=== PATIENT | female | born 1940 | race Caucasian/White ===

== ENCOUNTER 2024-10-15 14:05 | Emergency (ER) | payer MEDICARE, MEDICAID, SELFPAY ==
[2024-10-15] VITALS (21 sets, daily range): BP systolic 129–170; BP diastolic 57–99; PULSE 82–103; RESP 16–30; TEMP 36.9; O2SAT 96–98
--- NOTE | ~2024-10-15 | XR_ITS ---
EXAMINATION: XR chest 2V DATE: 10/15/2024 14:59 INDICATION: Chest pain. Abnormal labs. TECHNIQUE: frontal and lateral views of the chest were obtained. COMPARISON: None FINDINGS: Linear opacities at the left costophrenic angle and favor lingular atelectasis over pneumonia. Indete rminate 1.5 cm nodular opacity lateral right midlung zone. No pulmonary edema, pleural effusion or pn eumothorax. The cardiomediastinal silhouette is normal. Thoracolumbar levoscoliosis and thoracolumbar compression fracture. 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 IMPRESSION: 1. Indeterminate 1.5 cm nodule at the lateral right midlung zone which could be malignant versus atel ectasis or pneumonia. Recommend chest CT for further evaluation. Reviewed, dictated and finalized at location A. IMPRESSION: 1. Indeterminate 1.5 cm nodule at the lateral right midlung zone which could be malignant versus atelectasis or pneumonia. Recommend chest CT for further eval uation.
--- NOTE | ~2024-10-15 | CT_ITS ---
EXAMINATION: CT diagnostic chest wo con DATE: 10/15/2024 15:26 INDICATION: lung nodule TECHNIQUE: Computed tomography (CT) of the chest was performed without intravenous contrast. Addition al 3D reconstructions utilizing coronal maximum intensity projection (MIP) were performed. Automated exposure control and iterative reconstruction technique were employed. The dose-length product was 13 6.05 mGy-cm. COMPARISON: Chest radiograph dated 10/15/2024 FINDINGS: The 1.5 cm right lower lobe nodule identified on prior chest radiograph demonstrates subtle calcifica tion consistent with old granulomatous disease. There is mild atelectasis inferiorly at the lingula a nd in the dependent lower lobes. 12 x 6 mm nodular opacity lateral left apex potentially related to p leural parenchymal scarring. No pneumonia, pulmonary edema, pleural effusion or pneumothorax. Mild ca rdiomegaly. Atherosclerotic coronary artery calcification. No pericardial effusion. Aortic valve calc ification. Thoracic aorta is normal in caliber. No pathologically enlarged thoracic lymphadenopathy. Likely age-related mild bilateral renal cortical atrophy. Visualized upper abdomen is otherwise unrem arkable. Severe lower cervical and lower thoracic spondylosis. Chronic appearing mild anterior wedgin g at T7 and T8. IMPRESSION: 1. The 1.5 cm nodule of concern the right lower lobe demonstrate subtle calcination consistent with o ld granulomatous disease. There is a second determined 12 x 6 mm peripheral left apical nodule which could be related to pleural parenchymal scarring. If prior outside imaging is unavailable to document chronic stability would recommend 3 month follow-up low-dose noncontrast chest CT or PET/CT for furt her evaluation. 2. Mild cardiomegaly. Reviewed, dictated and finalized at location A. IMPRESSION: 1. The 1.5 cm nodule of concern the right lower lobe demonstrate subtle calcina tion consistent with old granulomatous disease. There is a second determined 12 x 6 mm peripheral left apical nodule which could be related to pleural parench ymal scarring. If prior outside imaging is unavailable to document chronic stab ility would recommend 3 month follow-up low-dose noncontrast chest CT or PET/CT for further evaluation. 2. Mild cardiomegaly.
--- NOTE | 2024-10-15 14:17 | ECG_ITS ---
Test Date: 2024-10-15 14:28:05 Measurements Intervals Damon Rate: 100 P: 39 DC: 153 QRS: -35 QRSD: 141 T: 143 QT: 384 QTc: 497 Interpretive Statements SINUS TACHYCARDIA LEFT BUNDLE BRANCH BLOCK BASELINE ARTIFACT- I, II, III, AVR, AVL, AVF ABNORMAL ECG No previous ECG available for comparison Electronically Signed On 10-15-2024 15:29:37 CDT by Cyrus Yu D.O.
[2024-10-15 14:28] LABS: Basophils Absolute Auto 0.1 K/mm3 (0.0-0.1); Basophils Percent Auto 1.2 % (0.2-1.2); Eosinophils Absolute Auto 0.3 K/mm3 (0-0.3); Hematocrit 42.3 % (37.0-47.0); Hemoglobin 13.7 g/dL (12.0-15.0); Immature Granulocyte Absolute 0.03 K/mm3 (0.00-0.031); Immature Granulocyte Percent A 0.4 % (0-0.5); Lymphocytes Absolute Auto 2.38 K/mm3 (0.9-3.2); Lymphocytes Percent Auto 30.4 % (18.3-44.2); Mean Corpuscular HGB Conc 32.4 g/dl (32-36); Mean Corpuscular Hemoglobin 28.4 pg (26-34); Mean Corpuscular Volume 87.8 fl (80-100); Mean Platelet Volume 9.9 fl (7.4-10.4); Monocytes Absolute Auto 0.7 K/mm3 (0.1-0.6); Monocytes Percent Auto 8.3 % (2.6-8.5); Neutrophils Absolute Auto 4.4 K/mm3 (1.3-6.7); Neutrophils Percent Auto 55.7 % (45.5-73.1); Platelet Count Result 254 k/mm3 (150-375); Red Blood Count 4.82 M/mm3 (4.2-5.4); Red Cell Distribution Width 13.5 % (11.5-14.5); White Blood Count 7.8 K/mm3 (4.5-10.0)
[2024-10-15 14:39] LABS: Prothrombin Time 13.4 Seconds (11.1-14.7)
[2024-10-15 14:40] LABS: Alanine Aminotransferase 32 U/L (6-35); Albumin Level 3.8 g/dL (3.5-5.1); Alkaline Phosphatase 84 U/L (38-126); Anion Gap 7 mmol/L (4-12); Aspartate Amino Transferase 45 U/L (14-36); Bilirubin,Total 0.4 mg/dL (0.2-1.3); Blood Urea Nitrogen 18 mg/dL (7-17); Carbon Dioxide 23 mmol/L (22-30); Chloride 110 mmol/L (98-107); Estimated CRCL calculation 39 ml/min; Estimated Glomerular Filt Rate 55; Glucose 176 mg/dL (65-110); Lipase 122 U/L (23-300); Partial Thromboplastin Time 22.2 Seconds (22.3-36.8); Sodium 140 mmol/L (137-145); Total Protein 6.9 g/dL (6.3-8.2)
[2024-10-15 14:42] LABS: Potassium 3.5 mmol/L (3.4-5.0)
[2024-10-15 14:52] LABS: Troponin I 0.012 ng/mL (0.000-0.034)
--- NOTE | 2024-10-15 17:04 | ED_ITS ---
HPI - General Adult General Chief complaint: Recheck/Abnormal Lab/Rx Stated complaint: abn labs Time Seen by Provider: 10/15/24 14:08 History of Present Illness HPI narrative: Patient is an 83-year-old female who presents ER for evaluation of a possibly elevated troponin. She had a high sensitivity troponin level of 19. No reference range little was sent in with the patient. She reports she was having left shoulder pain for about a week without injury. The pain has been gone for 2 days. She has no complaints at this time. She has had no chest pain and no shortness of breath. No fevers or chills. She reports she does not walk. Related Data Home Medications ?Medication ?Instructions ?Recorded ?Confirmed ?Last Taken ?Type acetaminophen 325 mg capsule 325 mg PO Q6H PRN 03/24/20 Unknown History (Tylenol) alprazolam 0.5 mg tablet 0.5 mg PO DAILY 03/24/20 Unknown History amlodipine 5 mg tablet 5 mg PO DAILY 03/24/20 Unknown History arformoterol 15 mcg/2 mL solution 2 ml inhalation BID 03/24/20 Unknown History for nebulization (Brovana) bethanechol chloride 25 mg tablet 25 mg PO TID 03/24/20 Unknown History cilostazol 100 mg tablet 100 mg PO BID 03/24/20 Unknown History cyanocobalamin (vitamin B-12) 100 mcg subcut MONTHLY 03/24/20 Unknown History 1,000 mcg/mL injection solution duloxetine 20 mg capsule,delayed 20 mg PO DAILY 03/24/20 Unknown History release ergocalciferol (vitamin D2) 1,250 1,250 mcg PO WEEKLY 03/24/20 Unknown History mcg (50,000 unit) capsule fluoxetine 20 mg capsule (Prozac) 20 mg PO DAILY 03/24/20 Unknown History fluticasone 250 mcg-salmeterol 50 1 inh inhalation BID 03/24/20 Unknown History mcg/dose blistr powdr for inhalation (Advair Diskus) glycopyrrolate 25 mcg/mL solution 1 ml inhalation BID 03/24/20 Unknown History for nebulization-nebulizer accessor. (Lonhala Magnair Refill) icosapent ethyl 1 gram capsule 2 g PO BID 03/24/20 Unknown History (Vascepa) levothyroxine 50 mcg tablet 50 mcg PO DAILY 03/24/20 Unknown History (Synthroid) lisinopril 40 mg tablet 40 mg PO DAILY 03/24/20 Unknown History magnesium hydroxide 400 mg/5 mL 5 ml PO DAILY PRN 03/24/20 Unknown History oral suspension (Milk of Magnesia) memantine 28 mg capsule 28 mg PO DAILY 03/24/20 Unknown History sprinkle,extended release 24hr (Namenda XR) olanzapine 7.5 mg tablet 7.5 mg PO DAILY 03/24/20 Unknown History olanzapine 7.5 mg tablet 7.5 mg PO DAILY 03/24/20 Unknown History polyethylene glycol 3350 17 17 g PO DAILY 03/24/20 Unknown History gram/dose oral powder (Miralax) rivaroxaban 20 mg tablet (Xarelto) 20 mg PO DAILY 03/24/20 Unknown History rosuvastatin 10 mg tablet (Crestor) 10 mg PO DAILY 03/24/20 Unknown History Allergies Allergy/AdvReac Type Severity Reaction Status Date / Time donepezil AdvReac Intermediate allergy Verified 10/15/24 14:15 Review of Systems 2 Review of Systems: All systems reviewed & are unremarkable except as noted in HPI and below Constitutional: Constitutional: Reports no additional constitutional complaints ENT: Reports system reviewed and no additional complaints, except as documented Cardiovascular: Cardiovascular: Reports no additional cardiovascular complaints Respiratory: Respiratory: Reports no additional respiratory complaints Gastrointestinal: Gastrointestinal: Reports no additional gastrointestinal complaints Integumentary/Breasts: Skin/Breast: Reports system reviewed and no additional complaints, except as docu PMFSH Family History Family History (System 09/20/19 @ 13:23 by Haydee Upton) Mother Cerebrovascular accident, Onset Age: 70 Family history of diabetes mellitus in first degree relative, Onset Age: 70 Patient's mother is , Onset Age: 70 Father Cerebrovascular accident, Onset Age: 89 Family history of diabetes mellitus in first degree relative, Onset Age: 89 Patient's father is , Onset Age: 89 Exam 2 Narrative: GENERAL: Well-appearing, well-nourished, and in no acute distress. HEAD: Normocephalic, atraumatic. ENT: Mucous membranes moist. NECK: Supple. CHEST: Clear to auscultation. No respiratory distress. HEART: Tachycardic regular. Normal peripheral pulses. ABDOMEN: Soft, nontender, nondistended. EXTREMITIES: Normal range of motion. No edema. SKIN: Warm, dry, no rash. NEURO: Alert and oriented x3. PSYCH: Normal mood and affect. Course Course Emergency Course: Patient resting comfortably. Troponin negative. EKG with left bundle-branch block. No comparison. No chest pain. Discussed lung nodule seen on imaging of likely old disease but is evening need follow-up in 3 months. Appropriate for discharge. Vital Signs Vital signs: Vital Signs Temperature 98.4 F 10/15/24 14:10 Pulse Rate 103 H 10/15/24 14:10 Respiratory Rate 22 H 10/15/24 14:10 Blood Pressure 145/57 H 10/15/24 14:10 Pulse Oximetry 96 10/15/24 14:10 Oxygen Delivery Room Air 10/15/24 14:10 Temperature 98.4 F 10/15/24 14:10 Pulse Rate 101 H 10/15/24 14:30 Respiratory Rate 22 H 10/15/24 14:35 Blood Pressure 145/57 H 10/15/24 14:10 Pulse Oximetry 97 10/15/24 14:35 Oxygen Delivery Room Air 10/15/24 14:10 Medical Decision Making Vital Signs Vital Signs: Vital Signs Temperature 98.4 F 10/15/24 14:10 Pulse Rate 103 H 10/15/24 14:10 Respiratory Rate 22 H 10/15/24 14:10 Blood Pressure 145/57 H 10/15/24 14:10 Pulse Oximetry 96 10/15/24 14:10 Oxygen Delivery Room Air 10/15/24 14:10 Temperature 98.4 F 10/15/24 14:10 Pulse Rate 101 H 10/15/24 14:30 Respiratory Rate 22 H 10/15/24 14:35 Blood Pressure 145/57 H 10/15/24 14:10 Pulse Oximetry 97 10/15/24 14:35 Oxygen Delivery Room Air 10/15/24 14:10 Lab Data 10/15/24 14:20 10/15/24 14:20 Labs: Lab Results 10/15/24 Range/Units 14:20 WBC 7.8 (4.5-10.0) K/mm3 RBC 4.82 (4.2-5.4) M/mm3 Hgb 13.7 (12.0-15.0) g/dL Hct 42.3 (37.0-47.0) % MCV 87.8 (80-100) fl MCH 28.4 (26-34) pg MCHC 32.4 (32-36) g/dl RDW 13.5 (11.5-14.5) % Plt Count 254 (150-375) k/mm3 MPV 9.9 (7.4-10.4) fl Immature Gran % (Auto) 0.4 (0-0.5) % Neut % (Auto) 55.7 (45.5-73.1) % Lymph % (Auto) 30.4 (18.3-44.2) % [place] % (Auto) 8.3 (2.6-8.5) % Eos % (Auto) 4.0 (0-4.4) % Baso % (Auto) 1.2 (0.2-1.2) % Lymph # (Auto) 2.38 (0.9-3.2) K/mm3 [place] # (Auto) 0.7 H (0.1-0.6) K/mm3 Eos # (Auto) 0.3 (0-0.3) K/mm3 Baso # (Auto) 0.1 (0.0-0.1) K/mm3 Abs Immat Gran (auto) 0.03 (0.00-0.031) K/mm3 Absolute Neuts (auto) 4.4 (1.3-6.7) K/mm3 Absolute Nucleated RBC 0.000 (0.0-0.012) K/mm3 Nucleated RBC % 0.0 (0.0-0.2) % PT 13.4 (11.1-14.7) Seconds INR 1.0 APTT 22.2 L (22.3-36.8) Seconds Sodium 140 (137-145) mmol/L Potassium 3.5 (3.4-5.0) mmol/L Chloride 110 H (98-107) mmol/L Carbon Dioxide 23 (22-30) mmol/L Anion Gap 7 (4-12) mmol/L BUN 18 H (7-17) mg/dL Creatinine 0.96 (0.7-1.0) mg/dL Estim Creat Clear Calc 39 ml/min Estimated GFR 55 L (59 - ) Glucose 176 H (65-110) mg/dL Calcium 10.0 (8.4-10.2) mg/dL Total Bilirubin 0.4 (0.2-1.3) mg/dL AST 45 H (14-36) U/L ALT 32 (6-35) U/L Alkaline Phosphatase 84 (38-126) U/L Troponin I 0.012 (0.000-0.034) ng/mL Total Protein 6.9 (6.3-8.2) g/dL Albumin 3.8 (3.5-5.1) g/dL Lipase 122 (23-300) U/L Imaging Data Radiologist's impression: ITS Impressions Chest X-Ray 10/15/24 15:04 IMPRESSION: 1. Indeterminate 1.5 cm nodule at the lateral right midlung zone which could be malignant versus atelectasis or pneumonia. Recommend chest CT for further evaluation. Chest CT 10/15/24 15:35 IMPRESSION: 1. The 1.5 cm nodule of concern the right lower lobe demonstrate subtle calcination consistent with old granulomatous disease. There is a second determined 12 x 6 mm peripheral left apical nodule which could be related to pleural parenchymal scarring. If prior outside imaging is unavailable to document chronic stability would recommend 3 month follow-up low-dose noncontrast chest CT or PET/CT for further evaluation. 2. Mild cardiomegaly. ECG Data EKG #1: ECG completion date: 10/15/24 ECG completion time: 14:28 EKG Interpretation: tachycardia (100), sinus rhythm, non-specific ST changes, widened QRS and left axis Discharge Plan Discharge Clinical Impression: Left shoulder pain, Lung nodule Patient Disposition: Home Condition: Stable Instructions: Pulmonary Nodules (ED) Additional Instructions: Your troponin level was normal. Your CT scan showed that you had some lung nodules and it is recommended you get a repeat scan in 3 months to make sure they are not changing in size. Please return to the emergency department if you develop severe and persistent chest pain, difficulty breathing, dizziness, leg swelling or if you are coughing up blood as these can be signs of a medical emergency. Please call your doctor for a follow up appointment to determine the need for further testing. Patient Language: [place] Prescriptions: No Action levothyroxine [Synthroid] 50 mcg tablet 50 mcg PO DAILY duloxetine 20 mg capsule,delayed release(DR/EC) 20 mg PO DAILY fluticasone propion-salmeterol [Advair Diskus] 250-50 mcg/dose blister with device 1 inh inhalation BID Brovana 15 mcg/2 mL solution for nebulization 2 ml inhalation BID Vascepa 1 gram capsule 2 g PO BID cilostazol 100 mg tablet 100 mg PO BID magnesium hydroxide [Milk of Magnesia] 400 mg/5 mL suspension 5 ml PO DAILY PRN acetaminophen [Tylenol] 325 mg capsule 325 mg PO Q6H PRN bethanechol chloride 25 mg tablet 25 mg PO TID cyanocobalamin (vitamin B-12) 1,000 mcg/mL solution 100 mcg subcut MONTHLY fluoxetine [Prozac] 20 mg capsule 20 mg PO DAILY lisinopril 40 mg tablet 40 mg PO DAILY ergocalciferol (vitamin D2) 1,250 mcg (50,000 unit) capsule 1,250 mcg PO WEEKLY amlodipine 5 mg tablet 5 mg PO DAILY polyethylene glycol 3350 [Miralax] 17 gram/dose powder 17 g PO DAILY Lonhala Magnair Refill 25 mcg/mL solution for nebulization 1 ml inhalation BID Rx Instructions: administer in the morning and evening at the same times each day memantine [Namenda XR] 28 mg capsule,sprinkle,ER 24hr 28 mg PO DAILY rosuvastatin [Crestor] 10 mg tablet 10 mg PO DAILY Xarelto 20 mg tablet 20 mg PO DAILY Rx Instructions: must administer with evening meal olanzapine 7.5 mg tablet 7.5 mg PO DAILY olanzapine 7.5 mg tablet 7.5 mg PO DAILY alprazolam 0.5 mg tablet 0.5 mg PO DAILY Follow-up/Referrals: Cuate Manuel MD [Physician] - 1 Week (If no primary care doctor.) UNKNOWN,DOCTOR [Primary Care Provider] - 1 Week
--- NOTE | 2024-10-15 17:27 | PC.NURSE ---
Report given to SMAI Curtis at [facility]. All questions answered.
[2024-10-15 18:03] LABS: Troponin I < 0.012 ng/mL (0.000-0.034)
== END 2024-10-15 20:32 ==
PROVIDERS: Emergency Provider Emergency Medicine
DX: M25.512 Pain in left shoulder (principal); R91.1 Solitary pulmonary nodule; I51.7 Cardiomegaly; I44.7 Left bundle-branch block, unspecified; R00.0 Tachycardia, unspecified; Z79.899 Other long term (current) drug therapy
CPT/HCPCS: 36415; 71046; 71250; 80053; 83690; 84484; 85025; 85610; 85730; 93005; 99284